=== PATIENT | male | born 1950 | race Two or more races ===

== ENCOUNTER 2019-03-07 17:23 | Emergency (ER) | payer MEDICARE, MEDICAID ==
--- OUTSIDE RECORDS SUMMARY | 2019-03-07 17:31 | XMS REPORT ---
:1950 Author Organization [facility] Care Team Providers Name Role Phone ELIERKIMMY Primary Care Physician Unavailable Allergies, Adverse Reactions, Alerts Allergy Code CodeSystem Reaction Severity Criticality Status Start Substance Date Moderate Medications Medication Medication Medication Start Stop Route Dose Status Fill Code CodeSystem Date Date Instructions haloperidol 6374917 RxNorm 2019- IM 100 mg/mL active Inject 50 mg decanoate 07-15 50 intramuscularly solution every four weeks every for 30 day(s) four weeks bupropion HCl 127887 RxNorm oral 300 mg active for 30 3-15 tablet day(s) extended release 24 hr escitalopram 541642 RxNorm oral 20 mg active for 30 oxalate 3-15 tablet day(s) olanzapine 625167 RxNorm 2019-0 oral 15 mg active for 30 3-15 tablet day(s) Problems Problem Name Code CodeSystem Alternate Alternate Start End Status Narrative Code CodeSystem Date Date Schizophreni 86289051 SNOMED-CT Active a, 05-27 unspecified Relevant diagnostic tests/laboratory data Narrative No Information Procedures Procedure Code CodeSystem Target Date of Status Service Device Device Device Name Site Procedure Delivery Code Name UID Location Comprehensiv 972586 SNOMED-CT () 2018-06-14 complete Mental e medication 0 d Health- services, [place] [address] [place], [place], [id number] Comprehensiv 359489 SNOMED-CT () 2018-07-12 complete Mental e medication 0 d Health- services, [place] [address], [place], [id number] [phone] Comprehensiv 950105 SNOMED-CT () 2018-08-09 complete Mental e medication 0 d Health- services, [place] [address], [place], [id number] [id number] Comprehensiv 473820 SNOMED-CT () 2018-09-06 complete Mental e medication 0 d Health- services, [place] [address] [place] [address], [id number] [phone] Comprehensiv 937717 SNOMED-CT () 2018-10-03 complete Mental e medication 0 d Health- services, [place] [address] [place] [address], [id number] [id number] Comprehensiv 720089 SNOMED-CT () 2018-11-03 complete Mental e medication 0 d Health- services, [place] [address] [place] [address], [id number] [id number] Comprehensiv 422398 SNOMED-CT () 2018-12-01 complete Mental e medication 0 d Health- services, [place] [address] [place] [address], [id number] [id number] Comprehensiv 837424 SNOMED-CT () 2018-12-29 complete Mental e medication 0 d Health- services, [place] [address] [place] [address], [id number] [phone] Comprehensiv 150404 SNOMED-CT () 2019-01-26 complete Mental e medication 0 d Health- services, [place] [address] [place] [address], [id number] [phone] Office or [id number] SNOMED-CT () 2018-10-03 complete Mental other 7 d Health- outpatient [place] visit for [address], established [id number] patient, [phone] which requires at least 2 of these [address] components: An expanded problem focused history; An expanded problem focused examination; Medical decision making of [facility] Office or [id number] SNOMED-CT () 2019-01-06 complete Mental other 6 d Health- outpatient [place] visit for [address], established [id number] patient, [phone] which requires at least 2 of these [address] components: A problem focused history; A problem focused examination; [facility] [facility] medical decision making. Counselin Encounters/Encounter Diagnoses Encounter Name Encounter Diagnosis Diagnosis Diagnosis Date of Service Code Code Name CodeSystem Diagnosis Delivery Location Injectable H2010 [id number] Schizophrenia SNOMED-CT 2019-01-26 Behavioral Medication , unspecified [facility] [address] [place], [place], [phone] Vital Signs No Information Social History Element Description Description Start End Code CodeSystem AdditionalInfo Date Date SexAssignedAtBirth Male 1949-1 M AdministrativeGender 0-27 Hospital Discharge Instructions Reason For Referral Medical Equipment FDA Assessments
[2019-03-07 17:36] VITALS: BP 97/63
--- NOTE | 2019-03-07 18:14 | UC ---
Abdominal Pain Male HPI - HPI Summary HPI Summary: PATIENT HAS A HISTORY OF INTERMITTENT ABDOMINAL PAIN OVER THE PAST 6 MONTHS. STATES IT IS USUALLY IN THE MORNING AND IMPROVES AFTER HAVING BREAKFAST. EPISODES ARE OCCURRING SEVERAL TIMES WEEKLY. TODAY HE STATES IT WAS MORE SEVERE THAN NORMAL AND DID NOT IMPROVE AFTER EATING AND DRINKING. HE DENIES ANY NAUSEA OR VOMITING. HE HAS NOT HAD A BOWEL MOVEMENT TODAY BUT IS PASSING GAS. HE IS A SMOKER AND HAS NEVER BEEN SCREENED FOR ABDOMINAL AORTIC ANEURYSM. NO FEVER. - History of Current Complaint Chief Complaint: UCAbdominalPain Stated Complaint: STOMACH PAIN Time Seen by Provider: 03/07/19 17:26 Hx Obtained From: Patient Onset/Duration: Sudden Onset, Lasting Hours, Still Present Timing: Constant Severity Initially: Moderate Severity Currently: Moderate Pain Intensity: 6 Pain Scale Used: 0-10 Numeric Location: Diffuse Radiates: No Character: Dull Aggravating Factor(s): Nothing Alleviating Factor(s): Nothing Associated Signs And Symptoms: Negative: Diaphoresis, Fever, Chest Pain, Back Pain, Constipation, Blood in Stool, Urinary Symptoms, Nausea, Vomiting, Diarrhea - Allergies/Home Medications Allergies/Adverse Reactions: Allergies Allergy/AdvReac Type Severity Reaction Status Date / Time No Known Allergies Allergy Verified 03/07/19 17:36 Home Medications: Home Medications Haloperidol INJ IV/IM* [Haldol INJ IV/IM*] 5 mg INJ MONTHLY 03/07/19 [History Confirmed 03/07/19] OLANzapine TAB* [Zyprexa 10 MG TAB*] 15 mg PO DAILY 03/07/19 [History Confirmed 03/07/19] PMH/Surg Hx/FS Hx/Imm Hx Endocrine History: Dyslipidemia Other Psychological History: SCHIZOAFFECTIVE D/O - Surgical History Surgical History: Yes Surgery Procedure, Year, and Place: hip replacement. cataract - Social History Alcohol Use: Rare Substance Use Type: None Smoking Status (MU): Light Every Day Tobacco Smoker Amount Used/How Often: 1/2 pack a day Length of Time of Smoking/Using Tobacco: 40 years Household Exposure Type: Cigarettes Review of Systems All Other Systems Reviewed And Are Negative: Yes Constitutional: Positive: Negative Respiratory: Positive: Negative Cardiovascular: Positive: Negative Gastrointestinal: Positive: Abdominal Pain Physical Exam Triage Information Reviewed: Yes Appearance: Well-Appearing, No Pain Distress, Well-Nourished Vital Signs: Initial Vital Signs Temp 98.4 F 03/07/19 17:30 Pulse 86 03/07/19 17:30 Resp 16 03/07/19 17:30 BP 97/63 03/07/19 17:30 Pulse Ox 100 03/07/19 17:30 Vital Signs Reviewed: Yes Eyes: Positive: Conjunctiva Clear ENT: Positive: Hearing grossly normal Neck: Positive: Supple Respiratory Exam: Normal Cardiovascular Exam: Normal Abdomen Description: Positive: Soft, CVA Tenderness (L) - EQUIVOCAL, Other: - DIFFUSELY TENDER, WORSE EPIGASTRIC AND SUPRAPUBIC REGIONS. NO RIGIDITY OR REBOUND.. Negative: CVA Tenderness (R), Distended, Guarding Bowel Sounds: Positive: Present Musculoskeletal: Positive: No Edema Neurological: Positive: Alert Psychological: Positive: Age Appropriate Behavior Skin: Negative: Rashes Abd Pain Male Course/Dx - Course Course Of Treatment: 69-YEAR-OLD MALE SMOKER WITH INTERMITTENT UPPER ABDOMINAL PAIN OVER THE PAST 6 MONTHS. TODAY STATES IT WAS WORSE THAN NORMAL. DIFFERENTIAL DIAGNOSIS INCLUDES ABDOMINAL AORTIC ANEURYSM, PANCREATITIS, DEVELOPING OBSTRUCTION, COLITIS. PATIENT WOULD LIKELY BENEFIT FROM LABS AND/OR IMAGING. HE REQUIRES A HIGHER LEVEL OF SERVICE THAN WHAT IS AVAILABLE HERE IN THE URGENT CARE. TO [facility] BY PRIVATE CAR. PT OFFERED TRANSPORT TO THE ER BY AMBULANCE BUT DECLINES. ADVISED THAT BY NOT TRAVELING IN A MONITORED SETTING HE COULD BE RISKING WORSENING OF HIS CONDITION THAT COULD POSE A THREAT TO HIS LIFE, HEALTH AND MEDICAL SAFETY. HE VERBALIZES UNDERSTANDING AND CONTINUES TO DECLINE AMBULANCE TRANSFER. - Differential Dx/Clinical Impression Provider Diagnosis: Diffuse abdominal pain - Physician Notification/Consults Discussed Patient Care With: Reji Au - TO [facility] BY PRIVATE CAR Time Discussed With Above Provider: 18:10 Instructed by Provider To: MD Will See In ED Discharge ED - Sign-Out/Discharge Documenting (check all that apply): Patient Departure All imaging exams completed and their final reports reviewed: No Studies - Discharge Plan Condition: Guarded Disposition: TRANS HIGHER LVL OF CARE FAC Patient Education Materials: Abdominal Pain (ED) Referrals: Isi Thakkar MD [Primary Care Provider] - If Needed Additional Instructions: YOUR ABDOMINAL PAIN NEEDS TO BE FURTHER EVALUATED IN THE EMERGENCY ROOM. YOU REQUIRE A HIGHER LEVEL OF SERVICE THAN WHAT IS AVAILABLE IN THE URGENT CARE. GO DIRECTLY TO THE [facility] FROM HERE FOR FURTHER EVALUATION. YOU HAVE DECLINED TRANSFER TO THE ER BY AMBULANCE. BE ADVISED THAT BY NOT TRAVELING IN A MONITORED SETTING YOU COULD BE RISKING WORSENING OF YOUR CONDITION THAT COULD POSE A THREAT TO YOUR LIFE, HEALTH AND MEDICAL SAFETY. - Billing Disposition and Condition Condition: GUARDED Disposition: Trans Higher Lvl of Care Fac
== END 2019-03-08 05:16 | disposition short-term general hospital (02) ==
LOC: UCEAST 17:23
DX: K85.10 Biliary acute pancreatitis without necrosis or infection (principal); R10.9 Unspecified abdominal pain; F25.9 Schizoaffective disorder, unspecified; F17.210 Nicotine dependence, cigarettes, uncomplicated; Z96.649 Presence of unspecified artificial hip joint; Z79.899 Other long term (current) drug therapy; Z96.641 Presence of right artificial hip joint
CPT/HCPCS: 36415; 74177; 76705; 80053; 81003; 82150; 83605; 83690; 84484; 85025; 86140; 93005; 96374; 96375; 99211; 99284; G0463; J2270; Q9967

== ENCOUNTER 2019-03-07 18:27 | Emergency (ER) | payer MEDICARE, MEDICAID ==
[2019-03-07 18:58] LABS: ABS Basophils 0.1 10^3/ul (0-0.2); ABS Eosinophils 0.1 10^3/ul (0-0.6); ABS Lymphocytes 1.2 10^3/ul (1.0-4.8); ABS Monocytes 0.7 10^3/ul (0-0.8); Eosinophil % 0.7 %; Hematocrit 46 % (42-52); Hemoglobin 15.1 g/dL (14.0-18.0); Lymphocyte % 9.6 %; Mean Corpuscular HGB Conc 33 g/dL (31-36); Mean Corpuscular Hemoglobin 30 pg (27-31); Mean Corpuscular Volume 90 fL (80-94); Platelet Count 276 10^3/uL (150-450); Red Blood Count 5.07 10^6 /uL (4.18-5.48); Red Cell Distribution Width 14 % (10-15); White Blood Count 12.1 10^3/uL (3.5-10.8)
--- NOTE | 2019-03-07 19:08 | ED ---
GI/ HPI - HPI Summary HPI Summary: 69 year old male presents with abdominal pain for the past couple months. He states that pain is worst in morning but resolved after he eats. He tried eating today as normal and the pain did not resolve. He states that normally has pain in his epigastric region but now is lower abdomen. He denies any nausea vomiting or diarrhea. No chest pain shortness breath. No urinary symptoms. Has not seen a primary many years. no fevers. pain does not radiate to the back. He states that he does not drink alcohol. - History of Current Complaint Chief Complaint: EDAbdPain Time Seen by Provider: 03/07/19 19:00 Stated Complaint: ABD PAIN PER PT Pain Intensity: 4 - Allergy/Home Medications Allergies/Adverse Reactions: Allergies Allergy/AdvReac Type Severity Reaction Status Date / Time No Known Allergies Allergy Verified 03/07/19 18:33 PMH/Surg Hx/FS Hx/Imm Hx Endocrine/Hematology History: Denies: Hx Anticoagulant Therapy Respiratory History: Denies: Hx Asthma - Surgical History Surgery Procedure, Year, and Place: hip replacement. cataract Infectious Disease History: No Infectious Disease History: Denies: Traveled Outside the [place] in Last 30 Days - Family History Known Family History: Positive: Non-Contributory - Social History Alcohol Use: Rare Substance Use Type: Reports: None Smoking Status (MU): Light Every Day Tobacco Smoker Amount Used/How Often: 1/2 pack a day Length of Time of Smoking/Using Tobacco: 40 years Review of Systems Negative: Fever Negative: Chest Pain Negative: Shortness Of Breath Positive: Abdominal Pain. Negative: Vomiting, Diarrhea, Nausea All Other Systems Reviewed And Are Negative: Yes Physical Exam Triage Information Reviewed: Yes Vital Signs On Initial Exam: Initial Vitals Temp Pulse Resp BP Pulse Ox 98.5 F 74 16 122/81 96 03/07/19 18:30 03/07/19 18:30 03/07/19 18:30 03/07/19 18:30 03/07/19 18:30 Vital Signs Reviewed: Yes Appearance: Positive: Well-Appearing Skin: Positive: Warm, Dry Head/Face: Positive: Normal Head/Face Inspection Eyes: Positive: Normal, Conjunctiva Clear ENT: Positive: Pharynx normal Respiratory/Lung Sounds: Positive: Clear to Auscultation, Breath Sounds Present Cardiovascular: Positive: Normal, RRR Abdomen Description: Positive: Soft, Other: - diffuse abd tenderness greatest in epigastric Bowel Sounds: Positive: Present Musculoskeletal: Positive: Normal Neurological: Positive: Normal Psychiatric: Positive: Normal Procedures - Sedation Patient Received Moderate/Deep Sedation with Procedure: No Diagnostics - Vital Signs Vital Signs Temp Pulse Resp BP Pulse Ox 03/07/19 18:30 98.5 F 74 16 122/81 96 - Laboratory Lab Results: Lab Results 03/07/19 Range/Units 18:51 WBC 12.1 H (3.5-10.8) 10^3/uL RBC 5.07 (4.18-5.48) 10^6 /uL Hgb 15.1 (14.0-18.0) g/dL Hct 46 (42-52) % MCV 90 (80-94) fL MCH 30 (27-31) pg MCHC 33 (31-36) g/dL RDW 14 (10-15) % Plt Count 276 (150-450) 10^3/uL MPV 7.0 L (7.4-10.4) fL Neut % (Auto) 82.9 % Lymph % (Auto) 9.6 % [place] % (Auto) 6.2 % Eos % (Auto) 0.7 % Baso % (Auto) 0.6 % Absolute Neuts (auto) 10.0 H (1.5-7.7) 10^3/ul Absolute Lymphs (auto) 1.2 (1.0-4.8) 10^3/ul Absolute Monos (auto) 0.7 (0-0.8) 10^3/ul Absolute Eos (auto) 0.1 (0-0.6) 10^3/ul Absolute Basos (auto) 0.1 (0-0.2) 10^3/ul Absolute Nucleated RBC 0.0 10^3/ul Nucleated RBC % 0.0 Result Diagrams: 03/07/19 18:51 03/07/19 18:51 Lab Statement: Any lab studies that have been ordered have been reviewed, and results considered in the medical decision making process. - CT abd CT Interpretation Completed By: Radiologist Summary of CT Findings: IMPRESSION: 1. Prominence of pancreatic head with peripancreatic fluid and stranding concerning for acute pancreatitis. Correlate with amylase and lipase levels. Possible ductal stone at the ampulla. Consider MRCP for further assessment. 2. Mild wall thickening of the 2nd portion of the duodenum, reactive versus duodenitis. 3. Status post right hip replacement and ORIF 4 remote right acetabular fracture. 4. Small amount of free intraperitoneal fluid. - EKG No standard instances Cardiac Rate: NL EKG Rhythm: Sinus Rhythm Summary of EKG Findings: sinus rhythm Re-Evaluation - Re-Evaluation First Eval Re-Evaluation Time: 19:54 Change: Unchanged Comment: pain is managable now Second Eval Re-Evaluation Time: 20:21 Comment: pain returning Third Eval Re-Evaluation Time: 12:00 Change: Improved Comment: no pain Fourth Eval Re-Evaluation Time: 02:00 Comment: sleeping in room GIGU Course/Dx - Course Course Of Treatment: 69 year old male presents with worsening epigastric abdominal pain today. He states has had this pain before but normal it resolves after eating but today it did not. pain greatest in epigastric. He denies any nausea vomiting or diarrhea. No chest pain shortness breath. No urinary symptoms. no fevers. pain does not radiate to the back. On exam diffuse abdominal tenderness greatest in the epigastric. wbc 12. lfts normal. amylase and lipase elevated. CT shows pancreatitis and potential duodenitits. there is potential for stone in ampulla. MRCP is suggested which we do not have today. discussed case with dr gonzales who states that needs to be transfer to facility with ERCP capability. [facility] where contacted and they have no beds. confirmed with dr gonzales that we will not have ERCP till wednesday. [facility] was contacted twice and they do not have ECRP capabilities at this time so they declined. - Diagnoses Differential Diagnoses - Male: Cholelithiasis, Gastritis, Gastroenteritis (Viral ) Provider Diagnoses: Gallstone pancreatitis Discharge ED - Sign-Out/Discharge Documenting (check all that apply): Sign-Out Patient Signing out patient TO: Alla Esposito - Discharge Plan Condition: Stable Referrals: Isi Thakkar MD [Primary Care Provider] - - Billing Disposition and Condition Condition: STABLE
[2019-03-07 19:14] LABS: Albumin 4.1 g/dL (3.2-5.2); Albumin/Globulin Ratio 1.4 (1-3); BUN/Creatinine Ratio 19.2 (8-20); C Reactive Protein 13.49 mg/L (<8.01); Calcium 9.8 mg/dL (8.6-10.3); EGFR Non-African American 75.2 (>60); Total Bilirubin 0.4 mg/dL (0.2-1.0); Total Protein 7.1 g/dL (6.4-8.9)
[2019-03-07] MEDS ORDERED: Pantoprazole IV* 40 MG IV ONE (19:26)
[2019-03-07] MEDS ORDERED: NS 0.9% 1000 ML** 2,000 ML IV ONE (19:51)
[2019-03-07] MEDS ORDERED: Iohexol 300* (CONTRAST) 10 ML SDV IV ONE (20:06)
[2019-03-07] MEDS ORDERED: Morphine INJ* 2 MG/ML 1 ML SYRINGE (TWO MG - NEW SYRINGE VERSION) IV ONE (20:11)
[2019-03-07 21:22] LABS: Urine Appearance Clear; Urine Bilirubin Negative (Negative); Urine Blood Negative (Negative); Urine Color Yellow; Urine Glucose Negative (Negative); Urine Ketones Negative (Negative); Urine Nitrite Negative (Negative); Urine Protein Negative (Negative); Urine Specific Gravity 1.025 (1.010-1.030); Urine Urobilinogen Negative (Negative)
[2019-03-08] MEDS ORDERED: NS 0.9% 1000 ML** 1,000 ML IV ONE ×2 (01:41→04:06)
[2019-03-08 04:32] VITALS: BP 100/64
--- NOTE | 2019-03-08 04:53 | ED ---
Progress - Progress Note Progress Note: Pt is a signout from [facility], pending disposition. Prior to shift change, Elizabet and I spoke with multiple hospitals about the pt's present condition to transfer for MRCP or preferably ERCP before we would have either service available. [facility], [facility], [facility], [facility] all stated they could not take the patient. I spoke with GI at [facility] who will be accepting the pt to their facilities. patient will be transferred to ED at [facility], accepted by Dr Ceballos. Re-Evaluation - Re-Evaluation First Eval Re-Evaluation Time: 19:54 Change: Unchanged Comment: pain is managable now Second Eval Re-Evaluation Time: 20:21 Comment: pain returning Third Eval Re-Evaluation Time: 12:00 Change: Improved Comment: no pain Fourth Eval Re-Evaluation Time: 02:00 Comment: sleeping in room Course/Dx - Diagnoses Provider Diagnoses: Gallstone pancreatitis Discharge ED - Sign-Out/Discharge Documenting (check all that apply): Patient Departure - Discharge Plan Condition: Stable Disposition: TRANS HIGHER LVL OF CARE FAC Referrals: Isi Thakkar MD [Primary Care Provider] - - Billing Disposition and Condition Condition: STABLE Disposition: Trans Higher Lvl of Care Fac - Attestation Statements Document Initiated by Scribe: Yes Documenting Scribe: Sanjana Bray Provider For Whom Cosmeibe is Documenting (Include Credential): Alla Esposito MD. Scribe Attestation: Sanjana Villa, scribed for Alla Esposito MD. on 03/08/19 at 0500. Scribe Documentation Reviewed: Yes Provider Attestation: The documentation as recorded by the scribe, Sanjana Bray accurately reflects the service I personally performed and the decisions made by , Alla Esposito MD. Status of Scribe Document: Viewed
--- NOTE | 2019-03-08 06:47 | CONS ---
CONSULTATION REPORT: DATE OF CONSULT: 03/08/19 - EMERGENCY DEPT PRIMARY CARE PROVIDER: Dr. Isi Thakkar. CONSULTING DOCTOR: Porter Bunn MD. PHYSICIAN REQUESTING CONSULT: Dr. Esposito of the emergency room. REASON FOR CONSULT: Management of case of acute pancreatitis with suspected ampulla ductal stone. CHIEF COMPLAINT: Abdominal pain. HISTORY OF PRESENT ILLNESS: Rayshawn Benz is a 69-year-old male with past medical history of schizophrenia and mood disorder. He has had 6 months of abdominal pain in the mornings that usually resolved after he eats. The day prior to admission, the pain persisted and intensified and was 5 or 6/10 in intensity, mainly in the epigastric and periumbilical region. He took Mylanta and did not improve. He presented to [facility] Room and initial workup included leukocytosis of 12.1, lipase of 5323, amylase of 1281, alk phos slightly elevated to 120. T-bili, AST, and ALT all within normal limits. He had a CT of abdomen and pelvis with IV contrast, which demonstrated prominence of the pancreatic head with peripancreatic fluid and stranding concerning for acute pancreatitis. They correlate with amylase and lipase levels. Possible ductal stone of the ampulla. Consider MRCP for further assessment. There is mild wall thickening of the second portion of the duodenum reactive versus duodenitis. A small amount of free intraperitoneal fluid. Given these findings , Dr. Caballero, the on-call musculoskeletal physiotherapist, was contacted and recommended transfer to our facility that could pursue ERCP as Dr. Moreno (the only GI doctor in the area), who does the procedure is out of town until Wednesday, for 2-1/2 days after this study. There were multiple attempts to reach out to local facilities including [facility], and [place], and ultimately [facility] accepted the patient for ED to ED transfer. In the interim, he has had a gallbladder ultrasound that demonstrated limited visualization of the pancreas secondary to bowel gas with cholelithiasis with a large shattering stone in the gallbladder neck, top normal gallbladder wall thickness. No pericholecystic fluid. The common bile duct measured 2 mm. The large shattering stone was approximately 2 cm. He has got 3 to 4 L of normal saline in the emergency room. His blood pressures have been stopped in the 80s to 90 over 60s. He got 40 mg of IV Protonix and 2 mg of morphine (at 10:18 p.m.) day prior to consultation. PAST MEDICAL HISTORY: Schizophrenia. MEDICATIONS: 1. Lexapro 20 mg daily. 2. Bupropion 300 mg daily. 3. Zyprexa 15 mg daily. 4. Haloperidol 10 mg IM monthly. ALLERGIES: No known drug allergies. FAMILY HISTORY: Mother of Alzheimer's. Father at age 97 of "old age. " SOCIAL HISTORY: The patient denies any significant alcohol use. REVIEW OF SYSTEMS: A complete 14-point review of systems is negative except as per HPI. He denies any fevers, chills, nausea, vomiting. He did have a loose bowel movement in the emergency room just now. PHYSICAL EXAM: General Appearance: No acute distress. Vital Signs: Temperature 98.6, pulse rate between 71 and 94, blood pressure initially 122/81 , low of 82/61, currently 98/64, satting between 90% and 96% on room air. HEENT : Normocephalic, atraumatic. Pupils are equal, round, and reactive to light. Extraocular motions intact. No scleral icterus. Lungs: Clear to auscultation bilaterally with no wheezing, rales, or rhonchi. Cardiovascular: Regular rate and rhythm. No murmurs, rubs, or gallops. Abdomen: Soft, nontender. No rebound or guarding. No Jones sign. Extremities: Warm, well perfused. No peripheral edema. Skin: No lesions or rashes. Neuro: Alert and oriented x3. Pleasant and cooperative. DIAGNOSTIC STUDIES/LAB DATA: White count 12.1, hemoglobin 15.1, hematocrit 46, platelets 276. Sodium 138, potassium 4.0, chloride 100, carbon dioxide 33, BUN 19, creatinine 0.99, glucose 103. Lactic acid 0.7. Total bilirubin 0.4. AST 19, ALT 16, alk phos 120. Troponin 0.00. CRP 13.5, albumin 4.1, amylase 1281, lipase 5323. Urinalysis within normal limits. Imaging: As above. Please copy which I just dictated down here. EKG: Normal sinus rhythm, heart rate 68, normal intervals. No ST elevations or depressions. T-wave inversions in V1, QTC of 422. ASSESSMENT AND PLAN: Rayshawn Benz is a 69-year-old male with past medical history of schizophrenia, presenting with 6 months of intermittent morning abdominal pain, improved with food but progressive the day prior to consultation and evidence of acute pancreatitis with concern for gallstone in the ampulla of Vater. I agree with recommendation by Dr. Caballero that patient will be best served at a tertiary care facility or other facility that has more time in the access to ERCP procedure than 48 hours from now and [address] obtained (at the earliest). I was to recommend repeat the labs now including LFTs, CBC, BMP, lipid panel, and IgG-4 to rule out other etiologies like hypertriglyceridemia or autoimmune pancreatitis, however, since I have been consulted, I found out that a bed has finally been obtained at [facility] for transfer and will hold off on additional lab draws for now. Would recommend continue IV fluid hydration with any signs of systemic inflammatory response syndrome or sepsis would start empiric antibiotics with okay to hold for now. Would recommend including the imaging reports and that labs obtained on the transfer documentation at the [facility] Emergency Room. Of note, the patient was initially reportedly skeptical of transfer anywhere out of town, but he was easily convinced that this is in his best interest in case his clinical course was to deteriorate. Thank you for this interesting consult. [id number]/[facility] #: [id number] [place]
== END 2019-03-08 05:16 | disposition short-term general hospital (02) ==
LOC: ED 18:27
DX: K85.10 Biliary acute pancreatitis without necrosis or infection (principal); F17.200 Nicotine dependence, unspecified, uncomplicated; Z96.641 Presence of right artificial hip joint
CPT/HCPCS: 36415; 74177; 76705; 80053; 81003; 82150; 83605; 83690; 84484; 85025; 86140; 93005; 96374; 96375; 99284; J2270; Q9967

== ENCOUNTER 2019-03-19 14:19 | Emergency (ER) | payer MEDICARE, MEDICAID ==
[2019-03-19] MEDS ORDERED: NS 0.9% 1000 ML** 1,000 ML IV ONE (14:32)
--- NOTE | 2019-03-19 14:35 | ED ---
Abdominal Pain/Male - HPI Summary HPI Summary: Pt is a 69 y/o M presenting to the ED with a chief complaint of abd pain initially onset this morning. Pt states he had a cholecystectomy 1.5wks ago d/t gallstone production, and while he was in [facility] he had a gallstone in his pancreas that he eventually passed. He states the pain came back this morning. He denies fever, nausea, or vomiting. Surgery done at [facility] d/t need for ERCP. - History of Current Complaint Chief Complaint: EDAbdPain Stated Complaint: ABD PAIN Time Seen by Provider: 03/19/19 14:26 Hx Obtained From: Patient Onset/Duration: Sudden Onset, Lasting Hours, Still Present Timing: Constant, Lasting Hours Severity Initially: Moderate Severity Currently: Moderate Pain Intensity: 5 Pain Scale Used: 0-10 Numeric Location: Epigastric Radiates: No Aggravating Factor(s): Nothing Alleviating Factor(s): Nothing Associated Signs And Symptoms: Negative: Fever, Nausea, Vomiting - Allergies/Home Medications Allergies/Adverse Reactions: Allergies Allergy/AdvReac Type Severity Reaction Status Date / Time No Known Allergies Allergy Verified 03/19/19 14:23 PMH/Surg Hx/FS Hx/Imm Hx Previously Healthy: Yes Endocrine/Hematology History: Denies: Hx Anticoagulant Therapy, Hx Diabetes Cardiovascular History: Denies: Hx Hypertension, Hx Myocardial Infarction Respiratory History: Denies: Hx Asthma History: Denies: Hx Renal Disease - Surgical History Surgery Procedure, Year, and Place: hip replacement. cataract Infectious Disease History: No Infectious Disease History: Denies: Traveled Outside the [place] in Last 30 Days - Family History Known Family History: Negative: Renal Disease - Social History Alcohol Use: Rare Hx Substance Use: No Substance Use Type: Reports: None Hx Tobacco Use: Yes Smoking Status (MU): Light Every Day Tobacco Smoker Amount Used/How Often: 1/2 pack a day Length of Time of Smoking/Using Tobacco: 40 years Review of Systems Negative: Fever Positive: Abdominal Pain. Negative: Vomiting, Nausea All Other Systems Reviewed And Are Negative: Yes Physical Exam - Summary Physical Exam Summary: Constitutional: Well-developed, Well-nourished, Alert. (-) Distressed Skin: Warm, Dry HENT: Normocephalic; Atraumatic Eyes: Conjunctiva normal Neck: Musculoskeletal ROM normal neck. (-) JVD, (-) Stridor, (-) Tracheal deviation Cardio: Rhythm regular, rate normal, Heart sounds normal; Intact distal pulses; The pedal pulses are 2+ and symmetric. Radial pulses are 2+ and symmetric. (-) Murmur Pulmonary/Chest wall: Effort normal. (-) Respiratory distress, (-) Wheezes, (-) Rales Abd: Soft. Surgical site s healing well, no evidence of erythema or wound dihiscence. Mild epigastric tenderness, (-) Distension, (-) Guarding, (-) Rebound Musculoskeletal: (-) Edema Lymph: (-) Cervical adenopathy Neuro: Alert, Oriented x3 Psych: Mood and affect Normal Triage Information Reviewed: Yes Vital Signs On Initial Exam: Initial Vitals Temp Pulse Resp BP Pulse Ox 98.5 F 91 18 120/80 97 03/19/19 14:20 03/19/19 14:20 03/19/19 14:20 03/19/19 14:20 03/19/19 14:20 Vital Signs Reviewed: Yes Procedures - Sedation Patient Received Moderate/Deep Sedation with Procedure: No Diagnostics - Vital Signs Vital Signs Temp Pulse Resp BP Pulse Ox 03/19/19 14:20 98.5 F 91 18 120/80 97 - Laboratory Result Diagrams: 03/19/19 14:38 03/19/19 14:38 Lab Statement: Any lab studies that have been ordered have been reviewed, and results considered in the medical decision making process. - Ultrasound Liver US Ultrasound Interpretation Completed By: Radiologist Summary of Ultrasound Findings: 1. Post cholecystectomy. 2. Negative for dilatation of the common bile duct or conspicuous stones within the common bile duct. 3. No acute RIGHT upper quadrant pathologic process evident. ED physician has reviewed this report. - EKG 1521 Cardiac Rate: NL - 76bpm EKG Rhythm: Sinus Rhythm ST Segment: Normal Ectopy: None Summary of EKG Findings: EKG at 1521 shows NSR at 76bpm with no STEMI. Dr. Solomon has reviewed and interpreted this EKG. Abdominal Pain Male Course/Dx - Course Course Of Treatment: Pt is a 69 y/o M presenting to the ED with a chief complaint of abd pain initially onset this morning. Recent cholecystectomy, pain came back this morning. He denies fever, nausea, or vomiting. Surgery done at [facility] d/t need for ERCP. On exam, pt's abd surgical sites are healing well, no signs of erythema or wound dehiscence, and there's mild epigastric tenderness. Exam otherwise nml. EKG at 1521 shows NSR at 76bpm with no STEMI. Dr. Solomon has reviewed and interpreted this EKG. Liver US shows: 1. Post cholecystectomy. 2. Negative for dilatation of the common bile duct or conspicuous stones within the common bile duct. 3. No acute RIGHT upper quadrant pathologic process evident. Pt will be d/c'ed with dx of abd pain and instructed to f/u with surgeon in [place] as scheduled. Pt agreeable with this plan. - Diagnoses Provider Diagnoses: Abdominal pain Discharge ED - Sign-Out/Discharge Documenting (check all that apply): Patient Departure - Discharge Plan Condition: Stable Disposition: HOME Patient Education Materials: Acute Abdominal Pain (ED) Referrals: Isi Thakkar MD [Primary Care Provider] - Additional Instructions: Follow up with your surgeon in [place] as scheduled this coming week. Return to the emergency department with any new or worsening symptoms. - Billing Disposition and Condition Condition: STABLE Disposition: Home - Attestation Statements Document Initiated by Kaiden: Yes Documenting Scribe: Sanjana Bray Provider For Whom Hannahe is Documenting (Include Credential): Carlos Solomon DO. Scribe Attestation: Sanjana Villa scribed for Carlos Solomon DO. on 03/19/19 at 1632. Scribe Documentation Reviewed: Yes Provider Attestation: The documentation as recorded by the Sanjana pena accurately reflects the service I personally performed and the decisions made by Carlos tamez DO. Status of Scribe Document: Viewed
[2019-03-19 14:57] LABS: ABS Basophils 0.1 10^3/ul (0-0.2); ABS Eosinophils 0.2 10^3/ul (0-0.6); ABS Lymphocytes 1.3 10^3/ul (1.0-4.8); ABS Monocytes 0.8 10^3/ul (0-0.8); ABS Neutrophils 5.8 10^3/ul (1.5-7.7); Eosinophil % 2.8 %; Hematocrit 42 % (42-52); Hemoglobin 14.3 g/dL (14.0-18.0); Mean Corpuscular HGB Conc 34 g/dL (31-36); Mean Corpuscular Hemoglobin 30 pg (27-31); Mean Corpuscular Volume 90 fL (80-94); Mean Platelet Volume 7.5 fL (7.4-10.4); Nucleated Red Blood Cells % 0.2; Platelet Count 377 10^3/uL (150-450); Red Blood Count 4.73 10^6 /uL (4.18-5.48); Red Cell Distribution Width 13 % (10-15); White Blood Count 8.2 10^3/uL (3.5-10.8)
[2019-03-19 15:09] LABS: Albumin 4.2 g/dL (3.2-5.2); Albumin/Globulin Ratio 1.3 (1-3); BUN/Creatinine Ratio 14.7 (8-20); Calcium 9.5 mg/dL (8.6-10.3); EGFR African American 87.9 (>60); EGFR Non-African American 72.6 (>60); Globulin 3.2 g/dL (2-4); Total Bilirubin 0.3 mg/dL (0.2-1.0); Total Protein 7.4 g/dL (6.4-8.9)
[2019-03-19 16:06] VITALS: BP 105/66
== END 2019-03-19 16:35 | disposition home or self-care (01) ==
LOC: ED 14:19
DX: R10.9 Unspecified abdominal pain (principal); F17.200 Nicotine dependence, unspecified, uncomplicated; Z90.49 Acquired absence of other specified parts of digestive tract; Z96.649 Presence of unspecified artificial hip joint
CPT/HCPCS: 36415; 76705; 80053; 83690; 84484; 85025; 93005; 96360; 96361; 99284